=== PATIENT | male | born 1990 | race American Indian/Alaskan Native ===

== ENCOUNTER 2017-04-04 11:48 | Emergency (ER) | payer SELFPAY ==
[2017-04-04 12:24] VITALS: BP 111/59
== END 2017-04-04 12:22 | disposition left against medical advice (07) ==
LOC: ED 11:48
DX: R21 Rash and other nonspecific skin eruption (principal); Z53.21 Procedure and treatment not carried out due to patient leaving prior to being seen by health care provider

== ENCOUNTER 2017-06-29 23:21 | Emergency (ER) | payer SELFPAY ==
[2017-06-30 00:56] VITALS: BP 110/69
--- NOTE | 2017-06-30 02:00 | XRay Report ---
FINAL REPORT EXAM: XR FOREARM LT HISTORY: swollen forearm TECHNIQUE: Four views of the left forearm were submitted. FINDINGS: There is localized soft tissue swelling overlying the dorsal aspect of the proximal shaft of the olecranon. There is no evidence of fracture or radiopaque foreign body. The elbow and wrist joints appear well maintained. IMPRESSION: Soft tissue swelling overlying the dorsal aspect of the proximal shaft of the olecranon. No evidence of fracture
--- NOTE | 2017-06-30 04:35 | Emergency Department Report ---
ED Upper Extremity Inj HPI - General Chief Complaint: Extremity Injury, Upper Stated Complaint: POSS SPIDER BITE Time Seen by Provider: 06/30/17 04:29 Source: patient Mode of arrival: Ambulatory Limitations: No Limitations - History of Present Illness Initial Comments: tp is a 27 y/o aam who presents for lfa abscess v/s infected instect bite to left dorsal forearm x 3 day pt advise that "something bit me when I went fishing " symptoms include pain and swelling with erythema , there is no weakness no numbness no fever no chills no n/v no malaise, no decreased rom or weakness Complaint: Injury to:: left Onset/Timin -: days(s) Other Extremity Injury: Forearm: Left (dorsal mid shaft ) Other Injuries: none Handedness: right Place: outdoors Severity scale (0 -10): 4 Improves With: other (palpation) Worsens With: other (palpation) Context: other (insect bite) Associated Symptoms: denies: weakness, numbness, suspects foreign body, nausea/ vomiting, heard/felt popping sensat Treatments Prior to Arrival: other (none) - Related Data Previous Rx's Medication Instructions Recorded Last Taken Type Cephalexin [Keflex] 500 mg PO TID #30 capsule 06/30/17 Unknown Rx Naproxen [Naprosyn TAB] 500 mg PO BID PRN #30 tablet 06/30/17 Unknown Rx Allergies Allergy/AdvReac Type Severity Reaction Status Date / Time No Known Allergies Allergy Unverified 04/04/17 12:21 ED Review of Systems ROS: Stated complaint: POSS SPIDER BITE Other details as noted in HPI Constitutional: denies: chills, fever Eyes: denies: eye pain, eye discharge, vision change ENT: denies: ear pain, throat pain Respiratory: denies: cough, shortness of breath, wheezing Cardiovascular: denies: chest pain, palpitations Endocrine: no symptoms reported Gastrointestinal: denies: abdominal pain, nausea, diarrhea Genitourinary: denies: urgency, dysuria Musculoskeletal: denies: back pain, joint swelling, arthralgia Skin: other (left forearm abscess ) Neurological: denies: headache, weakness, numbness, paresthesias, confusion Psychiatric: denies: anxiety, depression Hematological/Lymphatic: denies: easy bleeding, easy bruising ED Past Medical Hx - Past Medical History Previous Medical History?: No - Surgical History Past Surgical History?: Yes Additional Surgical History: FACIAL SURGERY - Social History Smoking Status: Current Some Day Smoker Substance Use Type: None - Medications Home Medications: Home Medications Medication Instructions Recorded Confirmed Last Taken Type Cephalexin [Keflex] 500 mg PO TID #30 capsule 06/30/17 Unknown Rx Naproxen [Naprosyn TAB] 500 mg PO BID PRN #30 tablet 06/30/17 Unknown Rx ED Physical Exam - General Limitations: No Limitations General appearance: alert, in no apparent distress - Head Head exam: Present: atraumatic, normocephalic - Eye Eye exam: Present: normal appearance - ENT ENT exam: Present: mucous membranes moist - Neck Neck exam: Present: normal inspection - Respiratory Respiratory exam: Present: normal lung sounds bilaterally. Absent: respiratory distress - Cardiovascular Cardiovascular Exam: Present: regular rate, normal rhythm. Absent: systolic murmur, diastolic murmur, rubs, gallop - GI/Abdominal GI/Abdominal exam: Present: soft, normal bowel sounds - Rectal Rectal exam: Present: deferred - Extremities Exam Extremities exam: Present: normal inspection, full ROM, tenderness (left doarsal forearm), normal capillary refill. Absent: pedal edema, joint swelling , calf tenderness - Expanded Upper Extremity Exam Left Forearm Wrist exam: Present: full ROM, tenderness, swelling, erythema (left forearm erythema swelling ). Absent: abrasion, laceration, ecchymosis, deformity, crepidus, dislocation, tenderness over anatomical snuff box, pain with axial thumb loading Hand Wrist exam: Present: normal inspection, full ROM. Absent: tenderness, swelling, abrasion, laceration, ecchymosis, deformity, crepidus, dislocation, erythema Neuro motor exam: Present: wrist extension intact, thumb opposition intact, thumb IP flexion intact, thumb adduction intact, fingers 2-5 abduction intact Neurosensory exam: Present: 2-point discrimination, radial nerve intact, ulnar nerve intact, median nerve intact Vascular: Present: vascular compromise, normal capillary refill, pulse deficit radial art, pulse deficit ulnar art, radial pulse, brachial pulse, ulnar pulse. Absent: pulse deficit brachial art - Back Exam Back exam: Present: normal inspection - Neurological Exam Neurological exam: Present: alert, oriented X3, CN II-XII intact, normal gait, reflexes normal - Psychiatric Psychiatric exam: Present: normal affect, normal mood - Skin Skin exam: Present: warm, dry, intact, normal color, other (left forearm abscess ). Absent: rash ED Course Vital Signs 06/30/17 00:51 Temperature 98 F Pulse Rate 69 Respiratory 18 Rate Blood Pressure 110/69 O2 Sat by Pulse 100 Oximetry - I & D Left Arm Type of Procedure: Simple Site: left dorsal forearm Blade Size: 11 I & D Procedure: betadine prep Progress: right forearm abscess for I&D ad this time. abscess 1x1 cm flucutant, site cleaned with betadine solution an , incision with 11 blade straight ,moderate yellow brown output, wound for blunt disection with forcepts, and irrigated wtih 20 sterile saline , steril edressing applied to same pt given discharge instructions, pt tolerated procedure with minimal distress. ED Medical Decision Making - Radiology Data Radiology results: image reviewed soft tissue swelling on left dosrsal forear, no evidence of fracture - Medical Decision Making pt forI&D of right foream abscess see procedure not pt given wound care instructions including return to emergency if symptoms worsen , pt verbalized agreement and understanding of same. pt for dc to self with wound care instruction , abx, and prn pain medication pt verbalized agreement and understanding of discharge plan. Critical care attestation.: If time is entered above; I have spent that time in minutes in the direct care of this critically ill patient, excluding procedure time. ED Disposition Clinical Impression: Abscess of left forearm Disposition: DC-01 TO HOME OR SELFCARE Is pt being admited?: No Does the pt Need Aspirin: No Condition: Good Instructions: Abscess (ED) Prescriptions: Cephalexin [Keflex] 500 mg PO TID #30 capsule Naproxen [Naprosyn TAB] 500 mg PO BID PRN #30 tablet PRN Reason: Pain Referrals: PRIMARY CARE, [Primary Care Provider] - 3-5 Days Forms: Work/School Release Form(ED) Time of Disposition: 04:55
== END 2017-06-30 05:00 | disposition home or self-care (01) ==
LOC: ED 23:21
DX: L02.414 Cutaneous abscess of left upper limb (principal); F17.200 Nicotine dependence, unspecified, uncomplicated; Z98.890 Other specified postprocedural states
CPT/HCPCS: 99283